=== PATIENT | male | born 1945 | race Two or more races ===

== ENCOUNTER 2017-01-25 14:29 | Emergency (ER) | payer MEDICARE, MEDICAID ==
[~2017-01-25] VITALS: Ht 165.1 cm; Wt 68.0 kg
[2017-01-25 18:59] VITALS: BP 147/93
[2017-01-25] MEDS ORDERED: LACTULOSE 20Gm/30ML SOLN PO ONE (19:15)
== END 2017-01-25 19:22 | disposition home or self-care (01) ==
LOC: ER 14:29
DX: K59.00 Constipation, unspecified (principal); I10 Essential (primary) hypertension; F17.200 Nicotine dependence, unspecified, uncomplicated
CPT/HCPCS: 74000

== ENCOUNTER 2018-08-08 14:56 | Emergency (ER) | payer MEDICARE, MEDICAID ==
[~2018-08-08] VITALS: Ht 162.6 cm; Wt 63.5 kg
[2018-08-08] MEDS ORDERED: SODIUM CHLORIDE 0.9% 1,000 ML IV ONE ×2 (15:04)
[2018-08-08] MEDS ORDERED: cloNIDine HCL 0.1 MG TAB PO ONE (15:15)
[2018-08-08 15:35] LABS: Basophils # (auto) 0 uL; Eosinophils # (auto) 0 uL; Lymphocytes # (auto) 0.8 uL; Lymphocytes % (auto) 4.5 % (10.0-50.0); Red Cell Distribution Width 13.4 % (11.8-14.3)
[2018-08-08 15:39] LABS: Eosinophils % (auto) 0.1 % (0.0-7.0); Hematocrit 46.6 % (41.0-53.0); Hemoglobin 15.1 g/dL (13.5-17.5); Mean Corpuscular Hemoglobin 29.8 pg (28.0-32.0); Mean Corpuscular Hgb Conc. 32.5 g/dL (32.0-36.0); Mean Corpuscular Volume 91.6 fL (80.0-100.0); Monocytes # (auto) 1.5 uL; Monocytes % (auto) 8.7 % (0.0-12.0); Neutrophils # (auto) 15.3 uL; Neutrophils % (auto) 86.7 % (37.0-80.0); Platelet Count (auto) 461 10^3/uL (140-450); Red Blood Cells 5.08 10^6/uL (4.5-5.90); White Blood Cell 17.6 10^3/uL (4.4-10.8)
[2018-08-08 15:50] LABS: Albumin 2.3 g/dL (3.4-5.0); Anion Gap 10 (5-15); Blood Urea Nitrogen 39 mg/dL (7-18); Calcium 8.3 mg/dL (8.5-10.1); Carbon Dioxide 26 mmol/L (21-32); Chloride 93 mmol/L (98-107); Glucose 121 mg/dL (74-106); Potassium 3.5 mmol/L (3.5-5.1); Sodium 129 mmol/L (136-145)
[2018-08-08 15:54] LABS: Alanine Aminotransferase 33 U/L (16-61); Alkaline Phosphatase 91 U/L (45-117); Aspartate Aminotransferase 53 U/L (15-37); BUN/Creatinine Ratio 44.3; Bilirubin, Total 1.6 mg/dL (0.2-1.0); GFR African American 110 mL/min; GFR Non-African American 91 mL/min; Total Protein 7.1 g/dL (6.4-8.2)
[2018-08-08 16:05] LABS: INR 1.06 (0.9-1.15); Prothrombin Time 11.3 sec (9.27-12.13)
[2018-08-08] MEDS ORDERED: PIPERACILLIN-TAZOB 3.375GM 100 ML IV ONE (16:15)
[2018-08-08 19:34] VITALS: BP 129/88
== END 2018-08-08 19:50 | disposition short-term general hospital (02) ==
LOC: ER 15:00
DX: A41.9 Sepsis, unspecified organism (principal); R07.9 Chest pain, unspecified; I10 Essential (primary) hypertension; F17.210 Nicotine dependence, cigarettes, uncomplicated; F15.90 Other stimulant use, unspecified, uncomplicated
CPT/HCPCS: 36415; 71045; 74176; 80053; 83605; 83880; 84484; 85025; 85610; 85730; 87040; 93005; 96365; 99285; J2543; J7030

== ENCOUNTER 2018-11-14 12:07 | Emergency (ER) | payer MEDICARE, MEDICAID ==
[~2018-11-14] VITALS: Ht 162.6 cm; Wt 45.4 kg
[2018-11-14] MEDS ORDERED: SODIUM CHLORIDE 0.9% 1,000 ML IV ONE (14:00)
[2018-11-14] MEDS ORDERED: KETOROLAC TROMETH 30 MG/ML 1ML VIAL IV ONE (14:00)
[2018-11-14] MEDS ORDERED: ONDANSETRON HCL 4 MG/2 ML VIAL IV ONE (14:00)
[2018-11-14] MEDS ORDERED: FAMOTIDINE (10MG/ML) 2ML VL IV ONE (14:00)
[2018-11-14 14:26] LABS: Basophils # (auto) 0.1 uL; Basophils % (auto) 0.8 % (0.0-2.0); Eosinophils # (auto) 0 uL; Hematocrit 42.3 % (41.0-53.0); Hemoglobin 14.3 g/dL (13.5-17.5); Lymphocytes % (auto) 12.3 % (10.0-50.0); Mean Corpuscular Hgb Conc. 33.7 g/dL (32.0-36.0); Monocytes # (auto) 0.3 uL; Monocytes % (auto) 3.2 % (0.0-12.0); Neutrophils # (auto) 6.8 uL; Neutrophils % (auto) 83.7 % (37.0-80.0); Platelet Count (auto) 450 10^3/uL (140-450); White Blood Cell 8.1 10^3/uL (4.4-10.8)
[2018-11-14 14:46] LABS: BUN/Creatinine Ratio 7.8; Calcium 9.1 mg/dL (8.5-10.1); Magnesium 2.2 mg/dL (1.6-2.6); Potassium 3.4 mmol/L (3.5-5.1)
[2018-11-14 14:48] LABS: Bilirubin, Total 0.7 mg/dL (0.2-1.0)
[2018-11-14 16:10] VITALS: BP 212/105
== END 2018-11-14 16:45 | disposition home or self-care (01) ==
LOC: ER 12:08
DX: R52 Pain, unspecified (principal); R11.10 Vomiting, unspecified; I10 Essential (primary) hypertension; F17.210 Nicotine dependence, cigarettes, uncomplicated; F15.10 Other stimulant abuse, uncomplicated
CPT/HCPCS: 36415; 80053; 83735; 85025; 93005; 94761; 99284; J7030

== ENCOUNTER 2019-03-02 15:43 | Emergency (ER) | payer MEDICARE, MEDICAID ==
[~2019-03-02] VITALS: Ht 162.6 cm; Wt 52.2 kg
[2019-03-02 16:00] VITALS: BP 173/98
[2019-03-02] MEDS ORDERED: NALBUPHINE HCL 10 MG/1ml INJECTION IM ONE (17:00)
== END 2019-03-02 17:39 | disposition home or self-care (01) ==
LOC: ER 15:43
DX: M54.5 Low back pain (principal); G89.29 Other chronic pain; I10 Essential (primary) hypertension; F17.210 Nicotine dependence, cigarettes, uncomplicated; F15.10 Other stimulant abuse, uncomplicated
CPT/HCPCS: 93005; 96372; 99283; J2300

== ENCOUNTER 2019-04-06 19:17 | Inpatient (IN) | payer MEDICARE, MEDICAID ==
[~2019-04-06] VITALS: Ht 160 cm; Wt 63.1 kg
[2019-04-06 19:45] LABS: Basophils # (auto) 0.1 uL; Basophils % (auto) 0.7 % (0.0-2.0); Eosinophils # (auto) 0.2 uL; Eosinophils % (auto) 2.1 % (0.0-7.0); Hematocrit 42.1 % (41.0-53.0); Hemoglobin 14.5 g/dL (13.5-17.5); Lymphocytes % (auto) 21.4 % (10.0-50.0); Mean Corpuscular Hemoglobin 32.6 pg (28.0-32.0); Mean Corpuscular Hgb Conc. 34.5 g/dL (32.0-36.0); Mean Corpuscular Volume 94.5 fL (80.0-100.0); Monocytes # (auto) 0.8 uL; Monocytes % (auto) 8.4 % (0.0-12.0); Neutrophils # (auto) 6.3 uL; Neutrophils % (auto) 67.4 % (37.0-80.0); Nucleated Red Blood Cells % 0.1 %; Platelet Count (auto) 363 10^3/uL (140-450); Red Blood Cells 4.45 10^6/uL (4.5-5.90); Red Cell Distribution Width 12.7 % (11.8-14.3); White Blood Cell 9.3 10^3/uL (4.4-10.8)
[2019-04-06 20:10] LABS: Alanine Aminotransferase 47 U/L (16-61); Albumin 3.8 g/dL (3.4-5.0); Anion Gap 9 (5-15); Aspartate Aminotransferase 34 U/L (15-37); Bilirubin, Total 0.8 mg/dL (0.2-1.0); Blood Urea Nitrogen 18 mg/dL (7-18); Calcium 8.8 mg/dL (8.5-10.1); Carbon Dioxide 24 mmol/L (21-32); Chloride 107 mmol/L (98-107); GFR African American 94 mL/min; GFR Non-African American 78 mL/min; Glucose 77 mg/dL (74-106); Potassium 3.8 mmol/L (3.5-5.1); Sodium 140 mmol/L (136-145); Total Protein 7.9 g/dL (6.4-8.2)
[2019-04-06 20:14] LABS: Alkaline Phosphatase 78 U/L (45-117)
[2019-04-06 22:31] LABS: Urine WBC None Seen /hpf (0 - 3)
[2019-04-06 22:37] LABS: Urine Bacteria NONE SEEN /hpf (None Seen); Urine Blood Negative /uL (Negative); Urine Specific Gravity 1.008 (1.001-1.035)
[2019-04-07] MEDS ORDERED: ONDANSETRON HCL 4 MG/2 ML VIAL IV PRN (02:45)
[2019-04-07] MEDS ORDERED: hydrALAZINE HCL 20 MG/ML VL IV PRN (02:45)
[2019-04-07] MEDS ORDERED: hydrALAZINE HCL 20 MG/ML VL IV ONE (03:00)
[2019-04-07] MEDS: SODIUM CHLORIDE 0.9% 1,000 ML IV SCH ×2 (03:22→16:27)
[2019-04-07] MEDS ORDERED: LISI10TA6 PO (06:43)
--- NOTE | 2019-04-07 07:25 | NUR ---
closing notes endorsed care to day shift nurse, Angelica.
[2019-04-07] MEDS: MORPHINE SULFATE 4 MG/ML SYR/VIAL IV PRN ×4 (07:52→20:33)
--- NOTE | 2019-04-07 07:55 | NUR ---
OPENING NOTE Assumed care of patient from NOC RNCarlos Eduardo. Patient awake and alert with no S/S of distress/SOB. C/O of right lower abdominal pain, prn pain medication administered. Instructed on POC and to call for assistance PRN, verbalized understanding. Bed in lowest, locked position with side rails up x2. Fall precautions in place and call light within reach. Will continue to monitor for changes Q1hr and PRN.
[2019-04-07 09:00] VITALS: BP 153/84
[2019-04-07] MEDS: FAMOTIDINE (10MG/ML) 2ML VL IV SCH ×2 (10:05→22:27)
[2019-04-07 13:00] VITALS: BP 147/70
[2019-04-07 17:00] VITALS: BP 154/94
--- NOTE | 2019-04-07 19:27 | NUR ---
CLOSING NOTE Endorsed care of patient to NOC RNChuy.
--- NOTE | 2019-04-07 19:30 | NUR ---
Opening Shift Note Assumed care of patient, awake and alert. No S/S of distress/SOB or pain. Instructed on POC and to call for assist PRN, will continue to monitor for changes Q1hr and PRN.
[2019-04-07 22:00] VITALS: BP 142/75
[2019-04-08] MEDS: MORPHINE SULFATE 4 MG/ML SYR/VIAL IV PRN ×6 (00:40→23:44)
[2019-04-08 04:59] VITALS: BP 130/79
[2019-04-08] MEDS: SODIUM CHLORIDE 0.9% 1,000 ML IV SCH ×2 (05:40→19:00)
[2019-04-08 06:43] LABS: Basophils # (auto) 0.1 uL; Basophils % (auto) 0.9 % (0.0-2.0); Eosinophils # (auto) 0.2 uL; Eosinophils % (auto) 3.2 % (0.0-7.0); Hemoglobin 12.4 g/dL (13.5-17.5); Lymphocytes # (auto) 2.3 uL; Lymphocytes % (auto) 35.1 % (10.0-50.0); Mean Corpuscular Hemoglobin 32.8 pg (28.0-32.0); Mean Corpuscular Hgb Conc. 34.5 g/dL (32.0-36.0); Monocytes # (auto) 0.6 uL; Monocytes % (auto) 9.2 % (0.0-12.0); Neutrophils # (auto) 3.3 uL; Neutrophils % (auto) 51.6 % (37.0-80.0); Platelet Count (auto) 306 10^3/uL (140-450); Red Blood Cells 3.79 10^6/uL (4.5-5.90); Red Cell Distribution Width 12.6 % (11.8-14.3); White Blood Cell 6.4 10^3/uL (4.4-10.8)
[2019-04-08 07:12] LABS: BUN/Creatinine Ratio 16.7; Calcium 8.1 mg/dL (8.5-10.1)
--- NOTE | 2019-04-08 07:42 | NUR ---
OPENING NOTE Assumed care of patient from NOC RNChuy. Patient awake and alert with no S/S of distress/SOB or pain. Instructed on POC and to call for assistance PRN, verbalized understanding. Bed in lowest, locked position with side rails up x2. Fall precautions in place and call light within reach. Will continue to monitor for changes Q1hr and PRN.
[2019-04-08 09:00] VITALS: BP 164/102
[2019-04-08] MEDS: FAMOTIDINE (10MG/ML) 2ML VL IV SCH ×2 (09:54→22:37)
[2019-04-08 13:00] VITALS: BP 144/76
[2019-04-08 17:00] VITALS: BP 146/77
--- NOTE | 2019-04-08 19:10 | NUR ---
CLOSING NOTE Endorsed care of patient to NOC RNChuy.
[2019-04-08 21:54] VITALS: BP 142/76
[2019-04-09] MEDS: MORPHINE SULFATE 4 MG/ML SYR/VIAL IV PRN ×2 (03:34→08:35)
[2019-04-09 04:50] VITALS: BP 132/68
--- NOTE | 2019-04-09 07:33 | NUR ---
Opening Shift Note: Received report from [facility] nurse Vera. Assumed care of patient, awake and alert. No S/S of distress/SOB or pain. Bed in lowest locked position, side rails up x 2, call light within reach. Patient instructed on POC and to call for assist PRN, will continue to monitor for changes Q1hr and PRN.
--- NOTE | 2019-04-09 07:55 | NUR ---
Patient down to HIDA scan.
--- NOTE | 2019-04-09 08:11 | NUR ---
Patient back to room. Patient refused HIDA scan. Will continue to monitor.
[2019-04-09] MEDS: SODIUM CHLORIDE 0.9% 1,000 ML IV SCH (08:35)
--- NOTE | 2019-04-09 09:03 | NUR ---
PT DENIES NEED FOR P.T.
[2019-04-09] MEDS: FAMOTIDINE (10MG/ML) 2ML VL IV SCH (09:30)
--- NOTE | 2019-04-09 10:12 | NUR ---
Dr. Pretty at bedside. Discussed POC with patient. Educated patient on need for HIDA scan. Patient denies scan. Will continue to monitor patient.
[2019-04-09 12:26] VITALS: BP 146/78
--- NOTE | 2019-04-09 12:58 | NUR ---
Discharge planning per consult, patient has orders to d/c to a board & Care and home health. Referral was sent to [facility], placed a follow up call, spoke with Amanda, and was advised that they will accept this patient on discharge. Patient will be discharging to [facility] and his scheduled pickler helper time is 3pm. His sister was advised and his nurse Luanne was also advised of dc plan. Addendum: 04/09/19 at 1302 by KIN URENA Amended: Links added.
--- NOTE | 2019-04-09 15:05 | NUR ---
IV removal: IV DC'd with clean sterile technique, catheter fully intact. Pressure dressing applied to site. Patient tolerated well.
--- NOTE | 2019-04-09 15:09 | NUR ---
Discharge instructions given as ordered. Encourage to follow up with PMD as instructed. All questions and concerns addressed. Patient verbalized understanding. Medication reconciliation form completed and copy given to patient. IV removed with catheter intact, pressure dressing applied. Patient awaiting supervisor picking crew.
--- NOTE | 2019-04-09 17:12 | NUR ---
Pt is an alert and oriented male that was residing with roommates prior to admission. Pt states he can walk but needs assistance and is not able to get around well even with a cane. Pt inquiring into placement options i.e. SNF vs private placement. Pt declined placment and is in agreeance with a room and board. Pt has an income of $900 a month and is willing to spend $600. States he spent $500 with his roommates. Contacted brand representative, Courtney, for [facility] housing referral agency and placement obtained for pt. Pt accepted to [facility] place and transport will fruit picker this afternoon before 5pm. Addendum: 04/09/19 at 1715 by MARGE STORY Amended: Links added.
== END 2019-04-09 16:20 | disposition home health service (06) | DRG 446 ==
LOC: ER 19:18 → OVERFLOW 19:19 → EAST 04-07 05:58
PROVIDERS: ADMIT Nurse Practitioner; ATTEND Family Medicine
DX: K80.00 Calculus of gallbladder with acute cholecystitis without obstruction (principal); E11.9 Type 2 diabetes mellitus without complications; I10 Essential (primary) hypertension; E86.0 Dehydration; F10.10 Alcohol abuse, uncomplicated; Z93.3 Colostomy status; F15.10 Other stimulant abuse, uncomplicated; F17.210 Nicotine dependence, cigarettes, uncomplicated; Z59.0 Homelessness
CPT/HCPCS: 36415; 71045; 74176; 80048; 80053; 81001; 83615; 83735; 83880; 84484; 85025; 93005; 96361; 96374; 96375; G0378; J2405; J3490

== ENCOUNTER → 2019-04-17 | Outpatient (CLI) | payer MEDICARE, MEDICAID ==
[~2019-04-17] MED LIST: LISI10TA6 PO
[2019-04-17 12:29] LABS: Urine Bacteria NONE SEEN /hpf (None Seen); Urine Blood Negative /uL (Negative); Urine Specific Gravity 1.009 (1.001-1.035); Urine WBC 1 /hpf (0 - 3)
[2019-04-17 13:34] LABS: Cholesterol 193 mg/dL (< 200); HDL Cholesterol 59 mg/dL (40-59); LDL Cholesterol 119 mg/dL (< 100); Triglycerides 110 mg/dL (< 150)
[2019-04-17 13:35] LABS: Alcohol, Urine < 3.0 mg/dL (0-5); Amphetamine Screen, Urine NEGATIVE (NEGATIVE); Barbiturate Scree,Urine NEGATIVE (NEGATIVE); Benzodiazephine Screen, Urine NEGATIVE (NEGATIVE); Cannabinoid Screen, Urine POSITIVE (NEGATIVE); Cocaine Screen, Urine NEGATIVE (NEGATIVE); Opiate Scree,Urine NEGATIVE (NEGATIVE); Phencyclidine Screen, Urine NEGATIVE (NEGATIVE)
== END | disposition home or self-care (01) ==
LOC: LAB 11:57
PROVIDERS: ATTEND Internal Medicine
DX: Z12.5 Encounter for screening for malignant neoplasm of prostate (principal); Z12.11 Encounter for screening for malignant neoplasm of colon; R10.9 Unspecified abdominal pain; I10 Essential (primary) hypertension; Z79.899 Other long term (current) drug therapy
CPT/HCPCS: 36415; 80061; 80307; 81001; 83036; 84153; 85652

== ENCOUNTER 2019-12-23 08:55 | Inpatient (IN) | payer MEDICARE, MEDICAID ==
[~2019-12-23] VITALS: Ht 162.6 cm; Wt 71.8 kg
[2019-12-23] MEDS ORDERED: cloNIDine HCL 0.1 MG TAB ONE (09:12)
[2019-12-23] MEDS ORDERED: cloNIDine HCL 0.1 MG TAB PO ONE (09:15)
[2019-12-23 09:37] LABS: Urine Bacteria NONE SEEN /hpf (None Seen); Urine Blood 2+ /uL (Negative); Urine Mucus FEW (None Seen); Urine Specific Gravity 1.016 (1.001-1.035); Urine WBC <1 /hpf (0 - 3)
[2019-12-23 10:44] LABS: Albumin 3.6 g/dL (3.4-5.0); Amylase 79 U/L (25-115); Anion Gap 9 (5-15); Blood Urea Nitrogen 11 mg/dL (7-18); Calcium 8.8 mg/dL (8.5-10.1); Carbon Dioxide 22 mmol/L (21-32); Chloride 103 mmol/L (98-107); Glucose 114 mg/dL (74-106); Lipase 137 U/L (73-393); Potassium 3.5 mmol/L (3.5-5.1); Sodium 134 mmol/L (136-145)
[2019-12-23 10:51] LABS: Alanine Aminotransferase 98 U/L (16-61); Alkaline Phosphatase 129 U/L (45-117); Aspartate Aminotransferase 23 U/L (15-37); BUN/Creatinine Ratio 10.4; Bilirubin, Total 0.6 mg/dL (0.2-1.0); GFR African American 88 mL/min; GFR Non-African American 73 mL/min
[2019-12-23 11:09] LABS: Basophils # (auto) 0 10 ^3/uL (0-0.2); Basophils % (auto) 0.3 % (0.0-2.0); Eosinophils # (auto) 0 10 ^3/uL (0-0.8); Eosinophils % (auto) 0.1 % (0.0-7.0); Hematocrit 48.6 % (41.0-53.0); Hemoglobin 16.3 g/dL (13.5-17.5); Lymphocytes # (auto) 1.2 10 ^3/uL (0.4-5.4); Lymphocytes % (auto) 9.2 % (10.0-50.0); Mean Corpuscular Hemoglobin 30.5 pg (28.0-32.0); Mean Corpuscular Hgb Conc. 33.5 g/dL (32.0-36.0); Mean Corpuscular Volume 91.1 fL (80.0-100.0); Monocytes # (auto) 0.5 10 ^3/uL (0-1.3); Monocytes % (auto) 4.2 % (0.0-12.0); Neutrophils # (auto) 11.2 10 ^3/uL (1.6-8.6); Neutrophils % (auto) 86.2 % (37.0-80.0); Platelet Count (auto) 341 10^3/uL (140-450); Red Blood Cells 5.34 10^6/uL (4.5-5.90); Red Cell Distribution Width 12.5 % (11.8-14.3)
[2019-12-23] MEDS ORDERED: ONDANSETRON HCL 4 MG/2 ML VIAL IV ONE (11:45)
[2019-12-23] MEDS ORDERED: cefTRIAXone 1GM/50ML D5W 50 ML IV ONE ×2 (13:15→15:00)
[2019-12-23] MEDS ORDERED: ACETAMINOPHEN 500 MG TAB PO PRN (15:00)
[2019-12-23] MEDS ORDERED: LABETALOL HCL 5 MG/ML 4ML SYRINGE IV PRN (15:00)
[2019-12-23] MEDS ORDERED: PROMETHAZINE HCL 25 MG/ML 1ML IV PRN (15:00)
[2019-12-23] MEDS ORDERED: MORPHINE SULF INJ 2 MG/ML SYRINGE 1ML IV PRN (15:00)
[2019-12-23] MEDS ORDERED: ENALAPRILAT 1.25 MG/ML-1ML VIAL IV ONE (15:00)
[2019-12-23] MEDS ORDERED: NITROGLYCERIN 0.4 MG SL TAB SL PRN (15:00)
[2019-12-23 15:27] LABS: Amphetamine Screen, Urine NEGATIVE (NEGATIVE); Barbiturate Scree,Urine NEGATIVE (NEGATIVE); Benzodiazephine Screen, Urine NEGATIVE (NEGATIVE); Cannabinoid Screen, Urine NEGATIVE (NEGATIVE); Cocaine Screen, Urine NEGATIVE (NEGATIVE); Opiate Scree,Urine NEGATIVE (NEGATIVE); Phencyclidine Screen, Urine NEGATIVE (NEGATIVE)
[2019-12-23] MEDS: SODIUM CHLORIDE 0.9% 1,000 ML IV SCH (16:15)
[2019-12-23] MEDS: MORPHINE SULF INJ 2 MG/ML SYRINGE 1ML IV PRN ×2 (16:30→21:52)
[2019-12-23] MEDS: traMADol HCL 50 MG TAB PO PRN (19:23)
[2019-12-23 20:11] VITALS: BP 134/68
--- NOTE | 2019-12-23 20:15 | NUR ---
Telemetry admit from ER JELANI NAQVI admitted to Telemetry unit. Patient oriented to JAMISON ISRAEL RN primary RN, unit, room, bed, and unit policies regarding patient care and visiting hours. Patient now on continuous telemetry monitoring, tele box #32 and telemetry reading on arrival to unit is SINUS RHYTHM. Patient placed on bedside oxygen, weighed by bedscale and encouraged to call if they need something. All questions and concerns addressed, patient verbalized understanding.
[2019-12-23] MEDS: FAMOTIDINE 20 MG TAB PO SCH (21:39)
[2019-12-23] MEDS: metroNIDAZOLE 500MG/100ML 100 ML IV SCH (21:40)
[2019-12-23] MEDS: LISINOPRIL 10 MG TAB PO SCH (21:40)
[2019-12-23 22:00] VITALS: BP 134/75
[2019-12-24] MEDS: MORPHINE SULF INJ 2 MG/ML SYRINGE 1ML IV PRN ×4 (02:08→20:15)
[2019-12-24 05:00] VITALS: BP 128/74
[2019-12-24] MEDS: SODIUM CHLORIDE 0.9% 1,000 ML IV SCH ×2 (05:09→12:18)
[2019-12-24] MEDS: metroNIDAZOLE 500MG/100ML 100 ML IV SCH ×3 (05:09→22:34)
[2019-12-24] MEDS: SUCRALFATE 1 GM/10 ML ORAL SUSP PO SCH ×4 (06:29→22:32)
--- NOTE | 2019-12-24 07:39 | NUR ---
CLOSING NOTE ENDORSED CARE OF PATIENT TO DAY SHIFT RN
[2019-12-24 08:00] VITALS: BP 109/69
[2019-12-24 09:00] VITALS: BP 109/69
[2019-12-24] MEDS: LISINOPRIL 10 MG TAB PO SCH ×2 (10:00→22:33)
[2019-12-24 11:28] LABS: Mean Corpuscular Hemoglobin 30.4 pg (28.0-32.0); Mean Corpuscular Hgb Conc. 33.3 g/dL (32.0-36.0); Mean Corpuscular Volume 91.5 fL (80.0-100.0); Platelet Count (auto) 227 10^3/uL (140-450); Red Blood Cells 4.59 10^6/uL (4.5-5.90); Red Cell Distribution Width 12.9 % (11.8-14.3); White Blood Cell 9.3 10^3/uL (4.4-10.8)
[2019-12-24 11:44] LABS: Albumin 2.9 g/dL (3.4-5.0); Potassium 3.8 mmol/L (3.5-5.1)
[2019-12-24 11:48] LABS: BUN/Creatinine Ratio 11.3; Bilirubin, Total 1.1 mg/dL (0.2-1.0); Total Protein 6.5 g/dL (6.4-8.2)
[2019-12-24 11:53] LABS: Band Neutrophils % (manual) 0; Basophils % (manual) 0 (0.0-2.0); Blast Cells 0; Metamyelocytes % 0; Myelocytes % 0; Promyelocytes % 0; Reactive Lymphocytes 0
[2019-12-24 11:54] LABS: Eosinophils % (manual) 2 (0-7); Lymphocytes % (manual) 30 (10.0-50.0); Monocytes % (manual) 7 (0-12)
[2019-12-24] MEDS: cefTRIAXone 1GM/50ML D5W 50 ML IV SCH (12:06)
[2019-12-24 13:00] VITALS: BP_SYST 141; BP_SYST 149; BP_DIAS 67; BP_DIAS 91
[2019-12-24 17:00] VITALS: BP 154/73
--- NOTE | 2019-12-24 19:10 | NUR ---
Opening Shift Note Assumed care of patient, awake and alert. No S/S of distress/SOB or pain. Instructed on POC and to call for assist PRN, will continue to monitor for changes Q1hr and PRN. Side rails up x 2, bed locked in lowest position, HOB elevated at least 30 degrees and call light is within.
[2019-12-24 22:00] VITALS: BP 133/74
[2019-12-24] MEDS: FAMOTIDINE 20 MG TAB PO SCH (22:32)
[2019-12-25] MEDS: MORPHINE SULF INJ 2 MG/ML SYRINGE 1ML IV PRN ×6 (00:47→20:55)
[2019-12-25] MEDS: SODIUM CHLORIDE 0.9% 1,000 ML IV SCH ×2 (03:27→15:22)
[2019-12-25] MEDS: metroNIDAZOLE 500MG/100ML 100 ML IV SCH ×3 (05:03→20:55)
[2019-12-25 05:56] VITALS: BP 127/71
[2019-12-25] MEDS: SUCRALFATE 1 GM/10 ML ORAL SUSP PO SCH ×4 (06:29→11:23)
--- NOTE | 2019-12-25 07:15 | NUR ---
Endorsed care to day shift RN.
--- NOTE | 2019-12-25 07:20 | NUR ---
Opening Shift Note Assumed care of patient, awake and alert. No S/S of distress/SOB or pain. Instructed on POC and to call for assist PRN, will continue to monitor for changes Q1hr and PRN. Bed locked in lowest position with two side rails up and call light in reach.
[2019-12-25 08:00] VITALS: BP 158/80
[2019-12-25 09:00] VITALS: BP 158/80
[2019-12-25] MEDS: cefTRIAXone 1GM/50ML D5W 50 ML IV SCH ×2 (09:00→09:20)
[2019-12-25 10:35] LABS: Albumin 3.1 g/dL (3.4-5.0); BUN/Creatinine Ratio 9.2; Bilirubin, Total 0.9 mg/dL (0.2-1.0); Calcium 8.5 mg/dL (8.5-10.1); Total Protein 6.9 g/dL (6.4-8.2)
[2019-12-25] MEDS: LISINOPRIL 10 MG TAB PO SCH ×2 (11:22→20:55)
--- NOTE | 2019-12-25 12:18 | NUR ---
Nutrition Assessment Notes please see attached link for complete assessment Est Energy needs 70 [id number] kcals (23-25 kcal/kgBW), Est Protein needs: 70-84 gms/day (1.0-1.2 gm/kgBW). Will continue to monitor and reassess prn. Addendum: 12/25/19 at [address] Amended: Links added.
--- NOTE | 2019-12-25 12:20 | NUR ---
Midline Placement: Patient educated on need for midline placement. All risks and benefits explained and all questions and concerns addresses prior to procedure. 18g/10cm midline inserted via right basilic vein using Ultrasound. Sterile technique utilized. Blood return obtained from lumen and flushed easily with NS using proper technique. Midline secured with saline lock; biodisc and occlusive dressing applied. Primary RN notified. Midline lot #[id number]
[2019-12-25 13:00] VITALS: BP 177/98
[2019-12-25 14:01] LABS: INR 1.08 (0.9-1.15); Partial Thromboplastin Time 29.9 sec (23.64-32.05)
[2019-12-25 17:00] VITALS: BP 129/69
--- NOTE | 2019-12-25 19:10 | NUR ---
Opening Shift Note Assumed care of patient, awake and alert. No S/S of distress/SOB or pain. Instructed on POC and to call for assist PRN, will continue to monitor for changes Q1hr and PRN. Bed locked in lowest position, HOB elevated at least 30 degrees, side rails up x 2 and call light is within reach.
[2019-12-25] MEDS: FAMOTIDINE 20 MG TAB PO SCH (20:54)
[2019-12-25 22:00] VITALS: BP_SYST 149; BP_SYST 164; BP_DIAS 82; BP_DIAS 94
[2019-12-26] MEDS: MORPHINE SULF INJ 2 MG/ML SYRINGE 1ML IV PRN ×4 (01:58→21:51)
[2019-12-26 05:00] VITALS: BP 164/76
[2019-12-26] MEDS: ENALAPRILAT 1.25 MG/ML-1ML VIAL IV PRN ×2 (06:09→16:11)
[2019-12-26] MEDS: metroNIDAZOLE 500MG/100ML 100 ML IV SCH ×3 (06:09→21:49)
[2019-12-26] MEDS: SUCRALFATE 1 GM/10 ML ORAL SUSP PO SCH ×4 (06:49→21:49)
[2019-12-26] MEDS: SODIUM CHLORIDE 0.9% 1,000 ML IV SCH ×2 (07:09→14:30)
--- NOTE | 2019-12-26 07:31 | NUR ---
CLOSING SHIFT NOTE CARE ENDORSED TO DAY SHIFT RN.
--- NOTE | 2019-12-26 07:45 | NUR ---
BLOOD PRESSURE PATIENT B/P 202/114 AND 194/97. PATIENT RECEIVED ENALAPRIL 1.25 MG AT 0609. PAGED HOSPITALIST, AWAITING RETURN CALL UPDATED MELSISA ALANIZ IN OR PATIENT B/P.
--- NOTE | 2019-12-26 07:45 | NUR ---
Opening Shift Note Assumed care of patient, awake, alert, and oriented. No S/S of distress/SOB. Instructed on POC and to call for assist PRN, will continue to monitor for changes Q1hr and PRN. Bed locked in lowest position with two side rails up and call light in reach.
--- NOTE | 2019-12-26 07:45 | NUR ---
OR CALL MELISSA ALANIZ FROM OR CALLED RE: PATIENT TRANSFER FOR PROCEDURE
--- NOTE | 2019-12-26 08:00 | NUR ---
OR CALL MELISSA ALANIZ FROM OR CALLED RE: PATIENT B/P. PER CORBIN, THE ANESTHESIOLOGIST STATED THEY WOULD TREAT B/P WITH PAIN MEDICATIONS AND/OR BLOOD PRESSURE MEDICATIONS. WILL CONTINUE TO MONITOR
--- NOTE | 2019-12-26 08:20 | NUR ---
OFF UNIT PATIENT TRANSFERRED TO OR.
[2019-12-26] MEDS ORDERED: ceFAZolin 1GM/50ML 50 ML IV ONE (08:28)
[2019-12-26] MEDS ORDERED: POVIDONE IODINE 10 % TOPICAL OINT 30GM TOP ONE (08:45)
[2019-12-26] MEDS ORDERED: MIDAZOLAM HCL 1MG/1ML-2 ML VIAL ONE (08:48)
[2019-12-26] MEDS ORDERED: fentaNYL CITRATE 100 MCG/2 ML VL ONE (08:48)
[2019-12-26] MEDS ORDERED: ROCURONIUM 10MG/ML 10ML VIAL IV ONE (08:48)
[2019-12-26] MEDS ORDERED: ONDANSETRON HCL 4 MG/2 ML VIAL ONE (08:51)
[2019-12-26] MEDS ORDERED: DexAMETHasone SOD PHOS 10MG/1ML VIAL INJ ONE (08:51)
[2019-12-26] MEDS ORDERED: LIDOCAINE 2% (LOCAL ANESTH.) PF 5ml SDV ONE (08:51)
[2019-12-26] MEDS ORDERED: GLYCOPYRROLATE 0.2 MG/ML 1ML VIAL ONE ×2 (08:51→10:01)
[2019-12-26] MEDS ORDERED: PROPOFOL 10 MG/ML 20 ML IV ONE (08:51)
[2019-12-26 09:00] VITALS: BP 194/97
[2019-12-26] MEDS: LISINOPRIL 10 MG TAB PO SCH ×2 (10:00→21:50)
[2019-12-26] MEDS ORDERED: LABETALOL HCL 5 MG/ML ML 20ML VIAL IV ONE (10:01)
[2019-12-26] MEDS ORDERED: NEOSTIGMINE 1 MG/ML INJ (10mg/10ML VIAL) ONE (10:01)
[2019-12-26] MEDS: HYDROmorphone HCL 2 MG/ML VL ONE ×6 (10:43→11:30)
[2019-12-26] MEDS ORDERED: MORPHINE SULFATE 4 MG/ML SYR/VIAL IV PRN (10:45)
[2019-12-26] MEDS ORDERED: ONDANSETRON HCL 4 MG/2 ML VIAL IV PRN (10:45)
[2019-12-26] MEDS ORDERED: HYDROmorphone HCL 2 MG/ML VL IV PRN (10:45)
--- NOTE | 2019-12-26 11:45 | NUR ---
ON UNIT PATIENT RETURNED TO ROOM. BOWLING PLACED DURING O.R. STAY, ABDOMINAL INCISION DRESSING C/D/I. NAE DRAIN LLQ SANGUINOUS FLUID. NO S/S OF DISTRESS, SOB, NO C/O PAIN. WILL CONTINUE TO MONITOR
[2019-12-26 13:00] VITALS: BP 146/83
--- NOTE | 2019-12-26 16:22 | NUR ---
NAE DRAIN EMPTIED APPROXIMATELY 25 ML SANGUINOUS FLUID. DRESSINGS C/D/I. PATIENT TOLERATED WELL
[2019-12-26 17:00] VITALS: BP 187/88
[2019-12-26 17:53] VITALS: BP 162/100
[2019-12-26] MEDS: traMADol HCL 50 MG TAB PO PRN (17:57)
[2019-12-26 21:44] VITALS: BP 168/81
[2019-12-26] MEDS: FAMOTIDINE 20 MG TAB PO SCH (21:49)
[2019-12-26] MEDS: hydrALAZINE HCL 20 MG/ML VL IV PRN (21:52)
[2019-12-26] MEDS: TEMAZEPAM 15 MG CAP PO PRN (21:53)
[2019-12-27 05:18] VITALS: BP 122/70
[2019-12-27] MEDS: MORPHINE SULF INJ 2 MG/ML SYRINGE 1ML IV PRN ×4 (06:21→22:05)
[2019-12-27] MEDS: metroNIDAZOLE 500MG/100ML 100 ML IV SCH ×3 (06:22→22:01)
--- NOTE | 2019-12-27 06:56 | NUR ---
Pt has been medicated 3 times this shift for c/o surgical site pain 01/13, no other issues.
[2019-12-27] MEDS: SUCRALFATE 1 GM/10 ML ORAL SUSP PO SCH ×4 (07:40→22:01)
[2019-12-27] MEDS: SODIUM CHLORIDE 0.9% 1,000 ML IV SCH (07:40)
--- NOTE | 2019-12-27 07:56 | NUR ---
NAE drain produced 30cc of sanguenous
--- NOTE | 2019-12-27 08:00 | NUR ---
Morning note Patient resting in bed with even and unlabored respirations, no distress noted. Instructed patient on POC, fall precautions and to call for assistance as needed. Patient verbalized understanding. Fall precautions in place with call light within reach.
[2019-12-27 09:29] VITALS: BP 143/78
[2019-12-27] MEDS: traMADol HCL 50 MG TAB PO PRN ×3 (09:34→19:56)
[2019-12-27] MEDS: cefTRIAXone 1GM/50ML D5W 50 ML IV SCH (09:35)
[2019-12-27] MEDS: LISINOPRIL 10 MG TAB PO SCH ×2 (09:35→22:02)
[2019-12-27] MEDS: HYDROmorphone HCL 2 MG/ML VL ONE ×3 (11:05→11:30)
--- NOTE | 2019-12-27 11:51 | NUR ---
was at bedside - Dr. Shaikh Ribeiro RN was at bedside. Order received and read back to verify.
[2019-12-27 12:49] LABS: Basophils # (auto) 0.1 10 ^3/uL (0-0.2); Basophils % (auto) 0.4 % (0.0-2.0); Eosinophils # (auto) 0 10 ^3/uL (0-0.8); Hematocrit 41.5 % (41.0-53.0); Hemoglobin 13.7 g/dL (13.5-17.5); Lymphocytes # (auto) 1.2 10 ^3/uL (0.4-5.4); Lymphocytes % (auto) 7.4 % (10.0-50.0); Mean Corpuscular Hemoglobin 30.4 pg (28.0-32.0); Mean Corpuscular Hgb Conc. 32.9 g/dL (32.0-36.0); Mean Corpuscular Volume 92.4 fL (80.0-100.0); Monocytes # (auto) 1.2 10 ^3/uL (0-1.3); Monocytes % (auto) 7.8 % (0.0-12.0); Neutrophils # (auto) 13.4 10 ^3/uL (1.6-8.6); Neutrophils % (auto) 84.4 % (37.0-80.0); Platelet Count (auto) 316 10^3/uL (140-450); Red Blood Cells 4.49 10^6/uL (4.5-5.90); White Blood Cell 15.9 10^3/uL (4.4-10.8)
[2019-12-27 13:07] LABS: Albumin 2.9 g/dL (3.4-5.0); Calcium 8.4 mg/dL (8.5-10.1); Magnesium 2.2 mg/dL (1.6-2.6)
[2019-12-27 13:11] VITALS: BP 136/89
[2019-12-27 13:11] LABS: BUN/Creatinine Ratio 9.2; Bilirubin, Total 0.5 mg/dL (0.2-1.0); Total Protein 6.7 g/dL (6.4-8.2)
--- NOTE | 2019-12-27 13:38 | NUR ---
assessment re: ss consult new place to live Patient is an alert and oriented male who lives home with roommates prior to admission. Patient has a cane for home use. Patient states he would like resources for room and boards. I have provided patient with a list of local room and boards. Patient has an income of $900 a month. Patient informed me he needs rehab for strength in his lower legs. Patient has a ss consult for rehab. Michelle STEELE will satisfy order. Patient informed me he will look for a new room and board after rehab. I informed patient he has a right to speak to a social work job titles regarding all care. I informed patient he has a right to participate in any and all discharge planning. Patient does not have a POA and advanced directive. I have offered patient information on POA and advanced directives. I informed the patient the advantages and benefits of having an Advanced Directive. Patient verbalized understanding and agreed to discharge plan. Addendum: 12/27/19 at 1342 by Marcella STORY Amended: Links added.
--- NOTE | 2019-12-27 15:41 | NUR ---
Coker catheter discontinued Order to discontinue Coker catheter. Coker discontinued with clean technique following deflation of balloon. Patient tolerated well with no complaints of pain. 1300 ml of clear yellow urine drained from catheter bag. Patient provided with a urinal. Call light within reach.
--- NOTE | 2019-12-27 16:23 | NUR ---
Nutrition Followup Notes Pt wt is 71.1 kg Pt was awake with no relatives at bedside when rounded this morning. Pt in pain s/p surgery. Pt is with a clear liquid diet, appetite is good aeb 75% PO intake. Encouraged pt to continue to meet at least 75% PO intake of meals. Will continue to monitor PO status, skin status, pertinent labs and weight trends. Will f/u in 2-3 days. Est Energy needs 70 [id number] kcals (23-25 kcal/kgBW), Est Protein needs: 70-84 gms/day (1.0-1.2 gm/kgBW). Will continue to monitor and reassess prn. LABS: Alb 3.1 L GI: Pt had 2 BM on 12/24 per RN doc. BS: 20 low risk. Refer to wound assessment report for full details. PES: Altered nutrition related lab values r.t current chronic medical condition aeb hypocalcemia mod hypoalb Comments 1) advance diet as medically feasible 2) continue current plan of care
[2019-12-27 17:00] VITALS: BP 172/73
[2019-12-27] MEDS: ENALAPRILAT 1.25 MG/ML-1ML VIAL IV PRN (17:33)
[2019-12-27] MEDS: hydrALAZINE HCL 20 MG/ML VL IV PRN (17:33)
--- NOTE | 2019-12-27 19:00 | NUR ---
Care endorsed to Dimla, RN Patient resting in bed with even and unlabored respirations, no distress noted. Dressing to the abdomen is clean, dry and intact. Fall precautions in place with call light within reach.
[2019-12-27] MEDS: FAMOTIDINE 20 MG TAB PO SCH (22:01)
[2019-12-27] MEDS: TEMAZEPAM 15 MG CAP PO PRN (22:04)
[2019-12-27 22:26] VITALS: BP 141/70
[2019-12-28] MEDS: SODIUM CHLORIDE 0.9% 1,000 ML IV SCH ×3 (00:36→12:40)
[2019-12-28] MEDS: MORPHINE SULF INJ 2 MG/ML SYRINGE 1ML IV PRN ×3 (03:45→17:53)
[2019-12-28] MEDS: hydrALAZINE HCL 20 MG/ML VL IV PRN ×3 (04:37→23:05)
[2019-12-28 05:00] VITALS: BP 170/89
[2019-12-28] MEDS: SUCRALFATE 1 GM/10 ML ORAL SUSP PO SCH ×4 (06:32→21:49)
[2019-12-28] MEDS: metroNIDAZOLE 500MG/100ML 100 ML IV SCH ×3 (06:32→21:49)
[2019-12-28] MEDS: traMADol HCL 50 MG TAB PO PRN ×3 (06:34→21:51)
--- NOTE | 2019-12-28 06:49 | NUR ---
Pt has been medicated 4 times throughout the night for pain, currently resting quietly rr even and unlabored no s/s of distress.
[2019-12-28] MEDS: cefTRIAXone 1GM/50ML D5W 50 ML IV SCH (08:54)
[2019-12-28] MEDS: LISINOPRIL 10 MG TAB PO SCH (08:55)
[2019-12-28 09:00] VITALS: BP 141/80
--- NOTE | 2019-12-28 09:03 | NUR ---
RE: Activity Educated patient on the need to ambulate and to be out of the hospital bed more. Patient verbalized understanding. Patient is A&Ox4.
--- NOTE | 2019-12-28 11:11 | NUR ---
MD was at bedside - Dr. Florian This RN notified MD of patient's urinary symptoms. MD verbalized understanding. Orders received and read back to verify.
[2019-12-28 11:26] LABS: Basophils # (auto) 0.1 10 ^3/uL (0-0.2); Basophils % (auto) 0.6 % (0.0-2.0); Eosinophils # (auto) 0.2 10 ^3/uL (0-0.8); Eosinophils % (auto) 1.5 % (0.0-7.0); Hematocrit 43.5 % (41.0-53.0); Hemoglobin 14.2 g/dL (13.5-17.5); Lymphocytes # (auto) 1.7 10 ^3/uL (0.4-5.4); Lymphocytes % (auto) 13.5 % (10.0-50.0); Mean Corpuscular Hemoglobin 30.3 pg (28.0-32.0); Mean Corpuscular Hgb Conc. 32.6 g/dL (32.0-36.0); Mean Corpuscular Volume 92.9 fL (80.0-100.0); Monocytes # (auto) 1.2 10 ^3/uL (0-1.3); Monocytes % (auto) 9.7 % (0.0-12.0); Neutrophils # (auto) 9.2 10 ^3/uL (1.6-8.6); Neutrophils % (auto) 74.7 % (37.0-80.0); Nucleated Red Blood Cells % 0.1 %; Platelet Count (auto) 327 10^3/uL (140-450); Red Blood Cells 4.68 10^6/uL (4.5-5.90); Red Cell Distribution Width 13.1 % (11.8-14.3); White Blood Cell 12.3 10^3/uL (4.4-10.8)
[2019-12-28 11:39] LABS: Potassium 3.4 mmol/L (3.5-5.1)
[2019-12-28 11:48] LABS: Albumin 3.3 g/dL (3.4-5.0); BUN/Creatinine Ratio 8.9; Bilirubin, Total 0.6 mg/dL (0.2-1.0); Calcium 8.5 mg/dL (8.5-10.1); Total Protein 7.2 g/dL (6.4-8.2)
[2019-12-28 11:50] LABS: Urine Bacteria NONE SEEN /hpf (None Seen); Urine Blood Negative /uL (Negative); Urine Specific Gravity 1.011 (1.001-1.035); Urine WBC <1 /hpf (0 - 3)
--- NOTE | 2019-12-28 12:01 | NUR ---
Patient's sister called for an update Patient's sister, Latasha, called for an update. Password obtained. Update provided. Latasha reports she does not know why or when the colostomy was placed. Latasha and the patient reunited approximately 1 year ago per Latasha.
[2019-12-28] MEDS ORDERED: POTASSIUM CHL 20 Meq TABLET PO ONE (12:15)
[2019-12-28 12:39] VITALS: BP 163/83
--- NOTE | 2019-12-28 13:30 | NUR ---
D/C Planning Regarding social service consult for SNF placement. Patient has no SNF placement preference. Faxed clinical information to [facility] and [facility]. Per Nazia patient has been accepted and will assign room number once patient is ready to discharge. Spoke to Dr. Florian regarding discharge orders to SNF. Per Dr. Florian patient is not stable to discharge and will keep patient. Placed follow up called to Nazia with [facility] advising her per doctor patient is not stable to discharge today. Informed MELISSA Alexandre.
--- NOTE | 2019-12-28 13:32 | NUR ---
RE: PVC's - notified Notified Dr. Florian of reported bigeminy PVC's per telemonitor tech. Patient is resting in bed with even and unlabored respirations, no distress noted. Order received and read back to verify.
[2019-12-28 16:31] VITALS: BP 146/90
--- NOTE | 2019-12-28 18:47 | NUR ---
Closing note Patient resting in bed with even and unlabored respirations on room air, no distress noted. Dressing to the medial abdomen is clean, dry and intact. 18 uday are intact with incision well approximated. NAE drain output 10 ml of sanguinous output. No output from colostomy site. Fall precautions in place with call light within reach.
--- NOTE | 2019-12-28 18:49 | NUR ---
NAE drain output = 10ml of sanguinous liquid
--- NOTE | 2019-12-28 19:30 | NUR ---
Care endorsed to MELISSA Urban.
[2019-12-28] MEDS: TEMAZEPAM 15 MG CAP PO PRN (21:49)
[2019-12-28] MEDS: FAMOTIDINE 20 MG TAB PO SCH (21:49)
[2019-12-28] MEDS: METOPROLOL TARTRATE 25 MG TAB PO SCH (21:51)
[2019-12-28 22:00] VITALS: BP 165/111
[2019-12-29] MEDS: MORPHINE SULF INJ 2 MG/ML SYRINGE 1ML IV PRN ×4 (02:52→21:25)
[2019-12-29 05:00] VITALS: BP 183/91
[2019-12-29] MEDS: metroNIDAZOLE 500MG/100ML 100 ML IV SCH ×3 (05:50→22:49)
[2019-12-29] MEDS: SUCRALFATE 1 GM/10 ML ORAL SUSP PO SCH ×4 (05:50→22:00)
[2019-12-29] MEDS: traMADol HCL 50 MG TAB PO PRN (06:25)
[2019-12-29] MEDS: hydrALAZINE HCL 20 MG/ML VL IV PRN ×2 (06:27→22:57)
[2019-12-29 06:55] VITALS: BP 158/85
--- NOTE | 2019-12-29 07:35 | NUR ---
End of Shift Note Endorsed care to dayshift RN. At this time patient has no s/s of distress or SOB.
--- NOTE | 2019-12-29 08:00 | NUR ---
DRESSING TO MEDIAL ABDOMINAL WALL LOOSE- DRESSING CHANGED TO MIDLINE INCISION, ELLIOT INTACT. NAE DRAIN IN PLACE 10ml RESIDUAL. BED IN LOWEST POSITION AND LOCKED, CALL LIGHT WITHIN REACH. WILL CONTINUE TO MONITOR.
[2019-12-29 09:00] VITALS: BP 157/89
[2019-12-29] MEDS: SODIUM CHLORIDE 0.9% 1,000 ML IV SCH (09:51)
[2019-12-29] MEDS: cefTRIAXone 1GM/50ML D5W 50 ML IV SCH (09:52)
[2019-12-29] MEDS: METOPROLOL TARTRATE 25 MG TAB PO SCH ×2 (09:53→22:56)
[2019-12-29] MEDS: LISINOPRIL 20 MG TAB PO SCH (09:54)
[2019-12-29 16:00] VITALS: BP 147/85
[2019-12-29] MEDS: FAMOTIDINE 20 MG TAB PO SCH (22:48)
[2019-12-29 22:49] LABS: Basophils # (auto) 0.1 10 ^3/uL (0-0.2); Eosinophils # (auto) 0.2 10 ^3/uL (0-0.8); Eosinophils % (auto) 1.6 % (0.0-7.0); Hematocrit 44.7 % (41.0-53.0); Hemoglobin 15.1 g/dL (13.5-17.5); Lymphocytes # (auto) 1.1 10 ^3/uL (0.4-5.4); Lymphocytes % (auto) 10.5 % (10.0-50.0); Mean Corpuscular Hemoglobin 30.7 pg (28.0-32.0); Mean Corpuscular Hgb Conc. 33.9 g/dL (32.0-36.0); Mean Corpuscular Volume 90.7 fL (80.0-100.0); Monocytes % (auto) 9.2 % (0.0-12.0); Neutrophils # (auto) 8.3 10 ^3/uL (1.6-8.6); Neutrophils % (auto) 77.7 % (37.0-80.0); Platelet Count (auto) 343 10^3/uL (140-450); Red Blood Cells 4.93 10^6/uL (4.5-5.90); Red Cell Distribution Width 13.3 % (11.8-14.3); White Blood Cell 10.6 10^3/uL (4.4-10.8)
[2019-12-29 23:56] VITALS: BP 106/67
[2019-12-30] MEDS: TEMAZEPAM 15 MG CAP PO PRN (00:08)
[2019-12-30] MEDS: traMADol HCL 50 MG TAB PO PRN (00:08)
[2019-12-30] MEDS: MORPHINE SULF INJ 2 MG/ML SYRINGE 1ML IV PRN ×2 (03:08→09:23)
[2019-12-30] MEDS: SODIUM CHLORIDE 0.9% 1,000 ML IV SCH (04:15)
[2019-12-30 05:00] VITALS: BP 167/99
[2019-12-30] MEDS: metroNIDAZOLE 500MG/100ML 100 ML IV SCH ×3 (06:07→21:53)
[2019-12-30] MEDS: SUCRALFATE 1 GM/10 ML ORAL SUSP PO SCH ×6 (06:07→22:30)
[2019-12-30] MEDS: hydrALAZINE HCL 20 MG/ML VL IV PRN ×2 (06:39→13:29)
--- NOTE | 2019-12-30 07:15 | NUR ---
End of Shift Note Endorsed care to dayshift RN. At this time patient has no s/s of distress or SOB.
[2019-12-30 09:00] VITALS: BP 155/92
[2019-12-30] MEDS: cefTRIAXone 1GM/50ML D5W 50 ML IV SCH (09:19)
[2019-12-30] MEDS: METOPROLOL TARTRATE 25 MG TAB PO SCH ×2 (09:20→21:54)
[2019-12-30] MEDS: LISINOPRIL 20 MG TAB PO SCH (09:22)
--- NOTE | 2019-12-30 11:19 | NUR ---
Nutrition Followup Notes Wt: 72.7 kg Pt s/p surgery open esema. pt now advanced to soft diet with inadequate PO of < 50% x4 per RN doc. Will continue to monitor PO status, skin status, pertinent labs and weight trends. Est Energy needs 70 [id number] kcals (23-25 kcal/kgBW), Est Protein needs: 70-84 gms/day (1.0-1.2 gm/kgBW). Will continue to monitor and reassess prn. LABS: ALB 3.3 L. GI: Pt had 2 BM on 12/24 per RN doc. BS: 20 low risk. Refer to wound assessment report for full details. PES: Altered nutrition related lab values r.t current chronic medical condition aeb hypocalcemia mod hypoalb Comments 1) Consider ensure enlive 1 carton bid if PO continues to be low. 2) continue current plan of care. F/u mod 3-5 days
[2019-12-30 13:00] VITALS: BP 167/100
[2019-12-30] MEDS: KETOROLAC TROMETH 30 MG/ML 1ML VIAL IV PRN ×2 (13:29→21:55)
[2019-12-30 17:00] VITALS: BP 135/82
[2019-12-30] MEDS: FAMOTIDINE 20 MG TAB PO SCH (21:54)
[2019-12-30 22:00] VITALS: BP 121/75
[2019-12-31] VITALS (7 sets, daily range): BP systolic 134–158; BP diastolic 67–121
[2019-12-31] MEDS: SODIUM CHLORIDE 0.9% 1,000 ML IV SCH (00:36)
[2019-12-31] MEDS: traMADol HCL 50 MG TAB PO PRN ×2 (02:49→14:19)
[2019-12-31] MEDS: KETOROLAC TROMETH 30 MG/ML 1ML VIAL IV PRN ×2 (05:48→12:22)
[2019-12-31] MEDS: metroNIDAZOLE 500MG/100ML 100 ML IV SCH ×3 (05:48→22:48)
[2019-12-31] MEDS: hydrALAZINE HCL 20 MG/ML VL IV PRN ×2 (05:49→15:19)
--- NOTE | 2019-12-31 07:15 | NUR ---
End of Shift Note Endorsed care to dayshift RN. At this time patient has no s/s of distress or SOB.
--- NOTE | 2019-12-31 07:35 | NUR ---
SHIFT OPENING NOTE RECEIEVD PATIENT SLEEPING IN BED COMFORTABLY IN BED AND WAS IN NO DISCOMFORT/ PAIN OR DISTRESS. PATIENT AWAKENED AND PATIENT STATED THAT HE STILL HAD PAIN BUT BEARABLE AT THIS TIME. SHIFT ASSESSMENT DONE AND CHARTED. PLAN OF CARE, MEDS, TREATMENTS AND SAFETRY DISCUSSED WITH PATIENT AND PATIENT VERBALIZED UNDERSTANDING. WILL CONTINUE TO MONITOR PATIENT.
[2019-12-31] MEDS: cefTRIAXone 1GM/50ML D5W 50 ML IV SCH (08:49)
[2019-12-31] MEDS: ASPirin 81 mg TAB PO SCH (10:04)
[2019-12-31] MEDS: METOPROLOL TARTRATE 25 MG TAB PO SCH ×2 (10:05→22:51)
[2019-12-31] MEDS: LISINOPRIL 20 MG TAB PO SCH (10:05)
--- NOTE | 2019-12-31 11:00 | NUR ---
AT BEDSIDE DR. TRAN WAS IN TO SEE PATIENT. MD INSTRUCTED PATIENT TO WALK WITH PT AND MD LEFT NEW ORDERS.
[2019-12-31] MEDS: SUCRALFATE 1 GM/10 ML ORAL SUSP PO SCH ×3 (11:30→22:00)
--- NOTE | 2019-12-31 14:00 | NUR ---
PATIENT'S COLOSTOMY NOTED TO BE OPENED AND LEAKED. PATIENT NOTED TO BE JUST LYING ON HIS LEFT SIDE AND NOT DOING ANYTHING FOR HIMSELF. ENCOURAGED PATIENT EAT HIS MEALS PATIENT REFUSING THEM. PATIENT ALSO SHOWED NO MOTIVATION IN HIS CARE. PATIENT ALSO REFUSING SOME OF HIS MEDICATIONS.
[2019-12-31] MEDS ORDERED: KETOROLAC TROMETH 30 MG/ML 1ML VIAL IV PRN (14:15)
--- NOTE | 2019-12-31 14:15 | NUR ---
DR. CASEY WAS IN AND NOTIFIED MD THAT PATIENT CONTINUE TO C/O PAIN. MD SAW AND TALKED WITH PATIENT AND MD LEFT NEW ORDERS.
[2019-12-31] MEDS: MORPHINE SULF INJ 2 MG/ML SYRINGE 1ML IV PRN ×2 (15:33→23:02)
--- NOTE | 2019-12-31 18:00 | NUR ---
PATIENT INSTRUCTED ON US OF INCENTIVE SPIROMETER BUT PATIENT NOT INTERESTED ON USING SAME. PATIENT STATED THAT HE KNEW HOW TO USE IT BUT NOT MOTIVATED TO USE IT. ENCOURAGED PATIENT TO USE IT AND SAME LEFT AT BEDSIDE. ENCOURAGED PATIENT ALSO TO EAT HIS MEALS, CHANGE HIS POSITION AND TO AMBULATE PATIENT WAS NOT SEEN OUT OF BED THE WHOLE DAY. PATIENT STATED THAT HE WAS UP TO THE BATHROOM X1.
--- NOTE | 2019-12-31 18:10 | NUR ---
7.5 ML OUTPUT NOTED WHEN NAE WAS EMPTIED.
[2019-12-31] MEDS: ATORVASTATIN 20 MG TAB PO SCH (22:51)
[2019-12-31] MEDS: FAMOTIDINE 20 MG TAB PO SCH (22:51)
[2020-01-01] VITALS (7 sets, daily range): BP systolic 142–168; BP diastolic 79–101
[2020-01-01] MEDS: TEMAZEPAM 15 MG CAP PO PRN (02:08)
[2020-01-01] MEDS: KETOROLAC TROMETH 30 MG/ML 1ML VIAL IV PRN ×2 (02:09→21:21)
[2020-01-01] MEDS: hydrALAZINE HCL 20 MG/ML VL IV PRN ×3 (02:09→18:30)
[2020-01-01] MEDS: metroNIDAZOLE 500MG/100ML 100 ML IV SCH (06:21)
[2020-01-01] MEDS: SUCRALFATE 1 GM/10 ML ORAL SUSP PO SCH ×4 (06:22→21:21)
[2020-01-01] MEDS: MORPHINE SULF INJ 2 MG/ML SYRINGE 1ML IV PRN ×2 (06:23→11:33)
[2020-01-01 07:17] LABS: Albumin 2.7 g/dL (3.4-5.0)
[2020-01-01 07:22] LABS: Bilirubin, Direct 0.2 mg/dL (0-0.2); Bilirubin, Total 0.6 mg/dL (0.2-1.0); Total Protein 6.5 g/dL (6.4-8.2)
--- NOTE | 2020-01-01 07:34 | NUR ---
Shift Opening Note Received patient lying in bed on his left side [id number]. Patient continue to c/o pain and stated that nothing works. Encouraged patient to use the IS, deep breathing, turn and repositioning, eat his meals and to work with PT. Shift assessment done and charted. Plan of care, meds, treatments and safety discussed with patient and patient verbalized understanding.Will continue to monitor patient.
[2020-01-01] MEDS: LISINOPRIL 20 MG TAB PO SCH ×2 (08:56→21:21)
[2020-01-01] MEDS: cefTRIAXone 1GM/50ML D5W 50 ML IV SCH (08:57)
--- NOTE | 2020-01-01 09:00 | NUR ---
MD AT BEDSIDE PATIENT WAS SEEN BY DR. TRAN AND MD TALKED TO PATIENT ABOUT DISCHARGING HIM TO SNF TODAY. PATIENT WAS UP ON THE CHAIR AT THIS TIME AND TOLERATING IT WELL. PATIENT CONTINUE TO C/O ABDOMINAL PAIN AND BP REMAINS ELEVATED. WILL CONTINUE TO MONITOR PATIENT.
[2020-01-01] MEDS: ASPirin 81 mg TAB PO SCH (11:03)
[2020-01-01] MEDS: METOPROLOL TARTRATE 25 MG TAB PO SCH ×2 (11:04→21:20)
[2020-01-01] MEDS ORDERED: LEVO500T21 PO (13:24)
[2020-01-01] MEDS ORDERED: METR500T PO (13:24)
[2020-01-01] MEDS ORDERED: FAMO20TA10 PO (13:24)
[2020-01-01] MEDS ORDERED: LISI-646 PO (13:24)
[2020-01-01] MEDS ORDERED: MET25T PO (13:24)
[2020-01-01] MEDS: metroNIDAZOLE 500 MG TAB PO SCH ×2 (14:23→21:17)
--- NOTE | 2020-01-01 15:55 | NUR ---
PHONED DR. CASEY'S OFFICE IF OKAY TO DISCHARGE PATIENT TO SNF. DR. CASEY'S OFFICE CALLED BACK AND STATED THAT PATIENT CAN BE DISCHARGE TO SNF PER MD'S PERSPECTIVE. FOLLOW UP APPOINTMENT MADE WITH ON 01/15/20 AT 10:15 AM
--- NOTE | 2020-01-01 16:00 | NUR ---
Phoned Yaneli Parking Attendant about about progress on patient discharge to SNF. Waiting for CM to return call.
--- NOTE | 2020-01-01 16:30 | NUR ---
Yaneli Private Investigator returned call. Patient will not be discharge today as there is no bed fro him at the SNF at this time. Patient notified of same.
[2020-01-01] MEDS: HYDROcodone-ACET 5/325MG TAB PO PRN ×2 (18:02→23:31)
--- NOTE | 2020-01-01 19:30 | NUR ---
Opening Shift Note Assumed care of patient, awake and alert. No S/S of distress/SOB or pain. Instructed on POC and to call for assist PRN, will continue to monitor for changes Q1hr and PRN. Patient's midline incision open to air, NAE x 1, colostomy patent.
[2020-01-01] MEDS: FAMOTIDINE 20 MG TAB PO SCH (21:17)
[2020-01-01] MEDS: ATORVASTATIN 20 MG TAB PO SCH (21:17)
[2020-01-02] MEDS: KETOROLAC TROMETH 30 MG/ML 1ML VIAL IV PRN ×3 (04:00→18:36)
[2020-01-02] MEDS: hydrALAZINE HCL 20 MG/ML VL IV PRN ×2 (04:01→23:30)
[2020-01-02 05:00] VITALS: BP 191/95
[2020-01-02] MEDS: HYDROcodone-ACET 5/325MG TAB PO PRN ×3 (06:23→21:38)
[2020-01-02] MEDS: metroNIDAZOLE 500 MG TAB PO SCH ×3 (06:23→21:37)
[2020-01-02 06:24] VITALS: BP 165/91
[2020-01-02] MEDS: SUCRALFATE 1 GM/10 ML ORAL SUSP PO SCH ×2 (06:26→11:58)
--- NOTE | 2020-01-02 07:00 | NUR ---
Patient mostly laying in bed, refusing some medications, refusing to turn or move around. Patient had IS at bedside, per patient he was using it, but was not witnessed. Patient very passive when being educated and seems to have no interest at all with plan of care. Report will be given to oncoming RN.
--- NOTE | 2020-01-02 08:00 | NUR ---
Opening Shift Note Assumed care of patient, awake, alert and oriented X4. No S/S of distress/SOB, complains of abdominal pain, 8/10, will medicate with prescribed pain medications. Tele# 32, sinus rhythm @ 77 bpm. Right upper arm midline, patent and saline locked, dressing is clean, dry and intact. Right upper abdominal NAE drain draining minimal brown drainage. Medial abdominal incision with uday intact,open to air. Instructed on POC and to call for assist PRN, verbalized understanding. Bed locked, in lowest position, call light within reach, will continue to monitor for changes Q1hr and PRN.
[2020-01-02 09:00] VITALS: BP 156/108
--- NOTE | 2020-01-02 11:11 | NUR ---
D/C Planning Received a call from [facility] advising me a (-) COVID test is needed before patient can transfer to facility. MELISSA Álvarez was informed.
[2020-01-02] MEDS: ASPirin 81 mg TAB PO SCH (11:57)
[2020-01-02] MEDS: levoFLOXacin 500 MG TAB PO SCH (11:57)
--- NOTE | 2020-01-02 11:57 | NUR ---
Nutrition Followup Notes Wt: 72.7 kg Pt s/p surgery open seema. Pt now advanced to soft diet with inadequate PO of < 8% x3 per RN doc. Will continue to monitor PO status, skin status, pertinent labs and weight trends. Will F/u in 3-5 days. Est Energy needs 70 [id number] kcals (23-25 kcal/kgBW), Est Protein needs: 70-84 gms/day (1.0-1.2 gm/kgBW). Will continue to monitor and reassess prn. LABS: ALB 2.7 L. GI: Pt had no BM today per RN doc. BS: 20 low risk. Refer to wound assessment report for full details. PES: Altered nutrition related lab values r.t current chronic medical condition aeb hypocalcemia mod hypoalb Comments 1) Consider ensure enlive 1 carton bid if PO continues to be low. 2) continue current plan of care.
[2020-01-02] MEDS: LISINOPRIL 20 MG TAB PO SCH ×2 (11:58→21:36)
[2020-01-02] MEDS: METOPROLOL TARTRATE 25 MG TAB PO SCH ×2 (11:58→21:36)
--- NOTE | 2020-01-02 12:40 | NUR ---
ROUNDS Dr Florian at bedside for rounds, new orders received and followed through. Patient updated on plan of care, verbalized understanding.
[2020-01-02 13:00] VITALS: BP 165/101
[2020-01-02] MEDS ORDERED: amLODIPine BESYLATE 5 MG TAB PO ONE (15:15)
[2020-01-02] MEDS ORDERED: AML5T PO (16:27)
[2020-01-02 17:00] VITALS: BP 185/92
--- NOTE | 2020-01-02 19:13 | NUR ---
Care endorsed to MELISSA García, night nurse.
--- NOTE | 2020-01-02 19:15 | NUR ---
NAE 10 ml of brown drainage out
--- NOTE | 2020-01-02 19:36 | NUR ---
Opening Shift Note Assumed care of patient, awake, alert. No S/S of distress/SOB noted. Right upper arm midline, patent and saline locked, dressing is clean, dry and intact. Right upper abdominal NAE drain draining minimal brown drainage. Medial abdominal incision with uday intact, open to air. Instructed on POC and to call for assist PRN. Patient verbalized understanding. Bed is in locked and lowest position, call light within reach. Call light is within reach.
[2020-01-02] MEDS: ATORVASTATIN 20 MG TAB PO SCH (21:37)
[2020-01-02] MEDS: FAMOTIDINE 20 MG TAB PO SCH (21:37)
[2020-01-02 22:00] VITALS: BP 154/93
[2020-01-02] MEDS: TEMAZEPAM 15 MG CAP PO PRN (23:19)
[2020-01-03] MEDS: KETOROLAC TROMETH 30 MG/ML 1ML VIAL IV PRN ×2 (00:36→06:36)
[2020-01-03] MEDS: HYDROcodone-ACET 5/325MG TAB PO PRN ×5 (04:26→21:53)
[2020-01-03 04:58] VITALS: BP 161/99
[2020-01-03] MEDS: metroNIDAZOLE 500 MG TAB PO SCH ×3 (05:43→21:51)
[2020-01-03] MEDS: hydrALAZINE HCL 20 MG/ML VL IV PRN (05:44)
--- NOTE | 2020-01-03 06:41 | NUR ---
NAE 30 ml of brown drainage out
--- NOTE | 2020-01-03 08:00 | NUR ---
Opening Shift Note Assumed care of patient, awake, alert and oriented X4. No S/S of distress/SOB, complains of generalized pain, 6/10, informed pain medication not due, verbalized understanding. Tele# 32, sinus rhythm @ 77 bpm. Right upper midline with dressing clean dry and intact, patent and saline locked. Right upper abdominal NAE drain with minimal brown drainage. Instructed on POC and to call for assist PRN, verbalized understanding. Bed locked, in lowest position, call light within reach, will continue to monitor for changes Q1hr and PRN.
[2020-01-03 09:00] VITALS: BP 150/85
[2020-01-03] MEDS: levoFLOXacin 500 MG TAB PO SCH (09:35)
[2020-01-03] MEDS: ASPirin 81 mg TAB PO SCH (09:35)
[2020-01-03] MEDS: METOPROLOL TARTRATE 25 MG TAB PO SCH ×2 (09:36→21:55)
[2020-01-03] MEDS: PANTOPRAZOLE 40 MG TAB PO SCH (09:37)
[2020-01-03] MEDS: LISINOPRIL 20 MG TAB PO SCH ×2 (09:37→21:52)
[2020-01-03] MEDS ORDERED: amLODIPine BESYLATE 5 MG TAB PO SCH (10:00)
--- NOTE | 2020-01-03 10:30 | NUR ---
Pt refused citing pain level. RN stated pt had been premedicated approximately 1 hour previous to attempt to treat him. Addendum: 01/03/20 at 1651 by Johnny Moncada EGG TRAYER Amended: Links added.
[2020-01-03 13:00] VITALS: BP 155/92
[2020-01-03 17:00] VITALS: BP 145/95
--- NOTE | 2020-01-03 19:09 | NUR ---
Care endorsed to MELISSA Jesus, night nurse.
--- NOTE | 2020-01-03 19:30 | NUR ---
assumed care, pt. awake, no c/o pain, no sob.
[2020-01-03] MEDS: ATORVASTATIN 20 MG TAB PO SCH (21:51)
[2020-01-03] MEDS: FAMOTIDINE 20 MG TAB PO SCH (21:51)
[2020-01-03 22:00] VITALS: BP 135/87
[2020-01-04] VITALS (7 sets, daily range): BP systolic 138–179; BP diastolic 79–92
[2020-01-04] MEDS: HYDROcodone-ACET 5/325MG TAB PO PRN ×3 (03:35→20:38)
[2020-01-04] MEDS: hydrALAZINE HCL 20 MG/ML VL IV PRN (05:19)
[2020-01-04] MEDS: metroNIDAZOLE 500 MG TAB PO SCH ×3 (05:43→22:22)
--- NOTE | 2020-01-04 07:45 | NUR ---
Opening Shift Note Assumed care of patient, awake and alert. No S/S of distress/SOB or pain. Instructed on POC and to call for assist PRN. Bed at lowest locked position and call light within reach. Will continue to monitor for changes Q1hr and PRN.
--- NOTE | 2020-01-04 08:20 | NUR ---
Dr. Florian at bedside.
[2020-01-04] MEDS ORDERED: AML5T PO (08:52)
[2020-01-04] MEDS ORDERED: amLODIPine BESYLATE 5 MG TAB PO SCH (10:00)
--- NOTE | 2020-01-04 10:00 | NUR ---
Pt refused PT tx. He then went on to refuse PT tx for the entire day. This LAMP SHADE SEWER provided detailed education in the risks of inactivity and the benefits of therapeutic activities.The pt reiterated his refusal. RN was informed. Addendum: 01/04/20 at 1238 by Johnny Moncada LAMP SHADE SEWER Amended: Links added.
[2020-01-04] MEDS: levoFLOXacin 500 MG TAB PO SCH (10:53)
[2020-01-04] MEDS: ASPirin 81 mg TAB PO SCH (10:53)
[2020-01-04] MEDS: METOPROLOL TARTRATE 25 MG TAB PO SCH ×2 (10:54→22:23)
[2020-01-04] MEDS: LISINOPRIL 20 MG TAB PO SCH ×2 (10:55→22:23)
[2020-01-04] MEDS: PANTOPRAZOLE 40 MG TAB PO SCH (10:55)
[2020-01-04] MEDS: KETOROLAC TROMETH 30 MG/ML 1ML VIAL IV PRN (11:00)
--- NOTE | 2020-01-04 11:23 | NUR ---
Assisted patient up to clean bed linens with the help of Marcella Latham
--- NOTE | 2020-01-04 15:20 | NUR ---
Patient c/o pain. Rates it 12/13. Will medicate per MD orders.
--- NOTE | 2020-01-04 16:04 | NUR ---
D/C percussion tuner Gabby advised me patient COVID test results came in. Faxed COVID test to [facility]. Per Nazia with [facility] patient has been accepted to room 16a accepting , Dr. Ramirez. [facility] availability for pick up truck driver is at 1:30am via [employer]. Informed MELISSA Cao.
--- NOTE | 2020-01-04 16:29 | NUR ---
D/C planning [facility] is able to transport patient at 17:15. MELISSA Burdick who was covering MELISSA aCo was informed.
--- NOTE | 2020-01-04 16:50 | NUR ---
Fidel Allen has cleared patient.
--- NOTE | 2020-01-04 17:00 | NUR ---
NOK Notified sister nandini of discharge and transfer plan. [phone]. provided sister with information.
--- NOTE | 2020-01-04 17:20 | NUR ---
called [facility] to give report. Visualizer stated that they are not expecting him until tomorrow, they will call me back once they have checked.
--- NOTE | 2020-01-04 17:56 | NUR ---
attempted to call in report at this time. no answer. Addendum: 01/04/20 at 1803 by Selina Barrera RN spoke to front counter serverBin on shift is currently busy receiving report from someone, left her [employer] phone number and extension to call back for report.
--- NOTE | 2020-01-04 18:18 | NUR ---
Report given to Avni TORRES at [facility]
--- NOTE | 2020-01-04 19:24 | NUR ---
Patient has been discharged IV catheter removed, tele box returned to Tele floor. Education and discharge paperwork given to patient. Patient verbalized understanding. [facility] eta was at 17:15. Awaiting transportation. Care endorsed to MONICA RN.
--- NOTE | 2020-01-04 19:30 | NUR ---
Opening Shift Note Assumed care of patient, awake and alert. No S/S of distress/SOB or pain. Instructed on POC and to call for assist PRN. Advised patient that this RN will call [facility] for confirm ETA. Bed in lowest locked position, call light within reach, side rails up x2, fall precautions in place. Will continue to monitor for changes Q1hr and PRN.
--- NOTE | 2020-01-04 20:00 | NUR ---
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 Updated patient on POC, patient verbalized understanding.
[2020-01-04] MEDS: ATORVASTATIN 20 MG TAB PO SCH (22:22)
[2020-01-04] MEDS: FAMOTIDINE 20 MG TAB PO SCH (22:22)
[2020-01-05] MEDS: HYDROcodone-ACET 5/325MG TAB PO PRN (01:44)
--- NOTE | 2020-01-05 01:47 | NUR ---
Pt being trans to SNF Order obtained for transfer of JELANI NAQVI to [facility]. Report given to [facility] transortation. Medication reconciliation form completed and copy given to patient by day RN. Transported via stretcher with all personal belongings. No distress noted on time of departure.
== END 2020-01-05 01:47 | DRG 414 ==
LOC: EDUNIT# 08:55 → ER 08:55 → TELE 08:56 → TELE-CENTR 20:15
PROVIDERS: ADMIT Internal Medicine; ATTEND Internal Medicine
PROC: 0FT40ZZ Resection of Gallbladder, Open Approach (ICD-10-PCS; principal; 2019-12-26 09:00)
DX: K80.00 Calculus of gallbladder with acute cholecystitis without obstruction (principal); K55.061 Focal (segmental) acute infarction of intestine, part unspecified; R65.10 Systemic inflammatory response syndrome (SIRS) of non-infectious origin without acute organ dysfunction; I10 Essential (primary) hypertension; F17.210 Nicotine dependence, cigarettes, uncomplicated; G89.29 Other chronic pain; F15.10 Other stimulant abuse, uncomplicated; I49.3 Ventricular premature depolarization; Z82.49 Family history of ischemic heart disease and other diseases of the circulatory system; Z83.3 Family history of diabetes mellitus; Z91.19 Patient's noncompliance with other medical treatment and regimen; Z93.3 Colostomy status; Z11.59 Encounter for screening for other viral diseases
CPT/HCPCS: 36415; 71045; 74176; 76705; 78226; 80053; 80076; 80307; 81001; 82150; 83690; 83735; 84132; 84484; 85007; 85025; 85027; 85610; 85652; 85730; 86850; 86900; 86901; 87070; 87075; 87086; 87205; 93005; 93306; 97110; 97116; 97530; G0378; J0690; J0696; J1100; J1885; J2001; J2250; J2405; J2704; J3490